=== PATIENT | female | born 1960 | race Caucasian/White ===

== ENCOUNTER → 2018-03-31 | Outpatient (CLI) | payer BC | LOC: M.RAD 10:59 | DX: Z12.31 Encounter for screening mammogram for malignant neoplasm of breast (principal) ==

== ENCOUNTER 2019-02-08 20:04 | Inpatient (IN) | payer BC ==
[~2019-02-08] VITALS: Ht 162.6 cm; Wt 54.0 kg
[2019-02-08 20:12] VITALS: BP 132/72
[2019-02-08] MEDS ORDERED: FEMARA2.5 MG PO (20:14)
[2019-02-08 20:45] LABS: ABSOLUTE LYMPHOCYTES 0.9 thou/uL (0.8-5.3); ABSOLUTE MONOCYTES 0.6 thou/uL (0.0-1.2); ABSOLUTE NEUTROPHILS 5.9 thou/uL (1.6-8.1); BASOPHILS 0.4 %; EOSINOPHILS 0.4 %; HEMOGLOBIN 13.6 gm/dL (12.0-15.0); LYMPHOCYTES 12.3 %; MCH 29.8 pg (26.0-34.0); MCHC 33.9 g/dL (28.0-37.0); MCV 87.9 fL (80.0-100.0); MONOCYTES 7.9 %; MPV 8.4 fl. (7.2-11.1); NUCLEATED RBCS 0 /100WBC; PLATELET COUNT* 201 thou/uL (150-400); RBC 4.55 mil/uL (4.20-5.00); RDW-CV 13.3 % (10.5-14.5); WBC 7.4 thou/uL (4.0-11.0)
[2019-02-08 20:53] LABS: CALCIUM 8.8 mg/dL (8.5-10.1); CREATININE 0.8 mg/dL (0.6-1.3); POTASSIUM 3.2 mmol/L (3.5-5.1)
[2019-02-08 20:58] LABS: ALBUMIN 4.1 g/dL (3.4-5.0); TOTAL BILIRUBIN 1.1 mg/dL (<0.1-1.0); TOTAL PROTEIN 6.6 g/dL (6.4-8.2)
[2019-02-08 23:18] LABS: URINE BILIRUBIN NEGATIVE (Negative); URINE BLOOD NEGATIVE (Negative); URINE CLARITY CLEAR; URINE COLOR YELLOW; URINE GLUCOSE-RANDOM NEGATIVE (Negative); URINE KETONES 1+ (Negative); URINE LEUKOCYTES-REFLEX NEGATIVE (Negative); URINE NITRITE-REFLEX NEGATIVE (Negative); URINE PROTEIN NEGATIVE (Negative); URINE SPECIFIC GRAVITY <= 1.005 (1.005-1.030); URINE UROBILINOGEN 0.2 E.U./dl (0.2-1.0)
[2019-02-08 23:27] LABS: AMP/METHAMP Negative (Negative); BARBITURATES Negative (Negative); BENZODIAZEPINES Negative (Negative); COCAINE Negative (Negative); METHADONE Negative (Negative); OPIATES Negative (Negative); PCP Negative (Negative); THC Negative (Negative)
[2019-02-09] VITALS: BP 120/60
[2019-02-09 00:34] VITALS: BP 116/44
[2019-02-09 04:00] VITALS: BP 97/52
--- NOTE | 2019-02-09 04:16 | NUR ---
ASSUMED CARE OF PT AT 0030 FROM THE ER. PT IS ALERT AND ORIENTED. VSS. PERRLA. NO COMPLAINTS OF PAIN. STEADY GAIT. PT IS IN SINUS RYTHM ON THE TELEMETRY. PT IS RESTING COMFORTABLY IN BED. RESPIRATIONS ARE EVEN AND NONLABORED. WILL CONTINUE TO [facility] PT.
[2019-02-09 05:44] LABS: HEMATOCRIT 40.6 % (37.0-47.0); HEMOGLOBIN 13.5 gm/dL (12.0-15.0); MCH 29.4 pg (26.0-34.0); MCHC 33.3 g/dL (28.0-37.0); MCV 88.3 fL (80.0-100.0); MPV 8.3 fl. (7.2-11.1); RBC 4.59 mil/uL (4.20-5.00); RDW-CV 13.3 % (10.5-14.5); WBC 4.8 thou/uL (4.0-11.0)
[2019-02-09 06:02] LABS: ALBUMIN 3.3 g/dL (3.4-5.0); CALCIUM 8.4 mg/dL (8.5-10.1); CREATININE 0.6 mg/dL (0.6-1.3); TOTAL BILIRUBIN 0.7 mg/dL (<0.1-1.0); TOTAL PROTEIN 5.7 g/dL (6.4-8.2)
[2019-02-09 06:06] LABS: POTASSIUM 4.3 mmol/L (3.5-5.1)
[2019-02-09 08:45] VITALS: BP 107/40
--- NOTE | 2019-02-09 09:57 | NUR ---
RECEIVED REPORT FORM [facility] AND ASSUMED CARE OF PT @ 8807.PT IS A/O X4,BP SOFT @ 107/40.TRACING SR ON THE MONITOR.IV PATENT WITH IV FLUIDS INFUSING PER ORDERS.PT IS CALM AND COOPERATIVE WITH NO C/O PAIN.PT LEFT RESTING IN BED WITH CALL LIGHT WITHIN REACH.WILL CONTINUE TO MONITOR.
[2019-02-09 10:12] VITALS: BP 107/40
[2019-02-09 11:50] VITALS: BP 121/52
--- NOTE | 2019-02-09 13:55 | NUR ---
PT OK FOR DISCHARGE.PAPERWORK COMPLETED AND GIVEN TO THE PT. NO SCRIPTS GIVEN.IV REMOVED.HEART MONITOR REMOVED AND RETURNED TO THE NURSING STATION.ALL PERSONAL BELONGINGS PACKED AND TAKEN WITH THE PT.PT WHEELED OUT BY NURSING STAFF TO PERSONAL VEHICLE.
== END 2019-02-09 14:15 | disposition home or self-care (01) | DRG 923 ==
LOC: M.ERS 20:04 → M.TBA-ER 22:46 → M.2W 22:46
PROVIDERS: Emergency Medicine; Nurse Practitioner Family; ADMIT Internal Medicine
DX: T67.0XXA Heatstroke and sunstroke, initial encounter (principal); E87.1 Hypo-osmolality and hyponatremia; E86.9 Volume depletion, unspecified; E87.6 Hypokalemia; X58.XXXA Exposure to other specified factors, initial encounter; Y93.89 Activity, other specified; Y92.89 Other specified places as the place of occurrence of the external cause; Y99.8 Other external cause status; Z85.3 Personal history of malignant neoplasm of breast; Z79.899 Other long term (current) drug therapy; Z91.018 Allergy to other foods

== ENCOUNTER → 2019-04-28 | Outpatient (CLI) | payer BC ==
[~2019-04-28] MED LIST: FEMARA2.5 MG PO
== END ==
LOC: M.RAD 10:37
DX: Z12.31 Encounter for screening mammogram for malignant neoplasm of breast (principal)

== ENCOUNTER → 2020-05-10 | Outpatient (CLI) | payer BC | LOC: M.RAD 10:55 | PROVIDERS: ATTEND Internal Medicine Hematology & Oncology | DX: Z12.31 Encounter for screening mammogram for malignant neoplasm of breast (principal) ==

== ENCOUNTER → 2020-10-09 | Outpatient (CLI) | payer BC | LOC: M.RAD 09:27 | PROVIDERS: ATTEND Internal Medicine Hematology & Oncology | DX: M85.88 Other specified disorders of bone density and structure, other site (principal); Z79.811 Long term (current) use of aromatase inhibitors ==

== ENCOUNTER → 2021-05-14 | Outpatient (CLI) | payer BC | LOC: M.RAD 10:48 | PROVIDERS: ATTEND Internal Medicine Hematology & Oncology | DX: Z12.31 Encounter for screening mammogram for malignant neoplasm of breast (principal) ==